=== PATIENT | male | born 2000 | race Caucasian/White ===

== ENCOUNTER 2020-02-25 14:35 | Emergency (ER) | payer OTHER, SELFPAY ==
--- NOTE | ~2020-02-25 | XR_ITS ---
EXAMINATION: XR finger 5th LT min 2V DATE: 02/25/2020 14:58 INDICATION: Swelling at the fifth digit after punching wall 8 days prior TECHNIQUE: Dorsal palmar, lateral and 2 oblique views of the left fifth digit were obtained COMPARISON: None FINDINGS: 30 degree palmar angulation of an otherwise nondisplaced extra articular fracture at the distal metad iaphyseal region of the fifth metacarpal. No other fractures identified. Joint spaces are normal. IMPRESSION: 1. 30 degrees palmar angulation of a fracture at the neck of the left fifth metacarpal (boxer's fract ure). Reviewed, dictated and finalized at location A. IMPRESSION: 1. 30 degrees palmar angulation of a fracture at the neck of the left fifth met acarpal (boxer's fracture).
--- NOTE | 2020-02-25 14:39 | ED.UPPEXIN ---
HPI - Extremity Injury (Upper) General Chief Complaint: Extremity Injury, Upper Stated Complaint: left pinky hand Time Seen by Provider: 02/25/20 14:49 Source: patient and RN notes reviewed Mode of arrival: ambulatory Limitations: no limitations History of Present Illness HPI narrative: 19-year-old male presents with concern for hand injury. Reports 9 days ago he punched a wall with his left hand causing pain, swelling, abrasions. 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 Reports abrasions are healing. complaint: injury to: left and hand Related Data Home Medications Medication Instructions Recorded Confirmed No Home Medications 08/23/19 08/23/19 Allergies Allergy/AdvReac Type Severity Reaction Status Date / Time No Known Allergies Allergy Unverified 08/23/19 15:08 Review of Systems Review of Systems: Narrative: CONSTITUTIONAL: Denies malaise, chills, sweats, or fever. CARDIOVASCULAR: Denies chest pain, palpitations RESPIRATORY: Denies cough or dyspnea. SKIN: Reports healing scabs MUSCULOSKELETAL: Reports pain, swelling to the left hand beneath the fifth digit NEUROLOGIC: Denies numbness, weakness All systems reviewed & are unremarkable except as noted in HPI and below PMFSH Family History Family History (Updated 08/23/19 @ 15:19 by Diana Malik [facility]) Grandparent Cancer Social History Social History Tobacco type: e-cigarettes/vaping Alcohol intake: never Substance use: never Comments At time of signature, agree with nursing past medical, surgical, social and family history. There is no relevant family history pertinent to the presenting complaint Exam Narrative: Exam Narrative: GENERAL: Well-appearing, well-nourished, and in no acute distress. HEAD: Normocephalic EYES: PERRLA, conjunctivae clear NECK: Supple. CHEST: Speaks in full sentences. No respiratory distress. HEART: Regular rate and rhythm. Normal and equal peripheral pulses. EXTREMITIES: Left hand and digits of hand have normal strength and sensation. 5/5 strength with digit flexion, extension. Range of motion normal. No clubbing, cyanosis noted. Dorsal tenderness beneath the fifth digit. Normal digital cascade with flexion of fingers, median, ulnar and radial nerve intact. Normal sensation of each side of finger. Can perform 'okay' sign, 'cross over finger test of index and middle fingers' and 'thumbs up' sign. No scissoring. Normal thumb opposition. Good capillary refill and radial pulse. Distal capillary refill less than 3 seconds. SKIN: Warn, dry, intact, pink. Scabs noted to the dorsal aspect of the hand of the knuckles, and abrasion noted to the palmar aspect of the hand with pink tissue. NEURO: Alert and oriented x3. PSYCH: Normal mood and affect Course Course Emergency Course: Patient is aware of diagnosis, understands and agrees to treatment plan. Anticipatory guidance given. Patient agrees to follow-up as directed and is aware of reasons to seek care at the emergency department. Portions of this record may have been created with voice recognition software Vital Signs Vital signs: Reviewed. Pt has been instructed to follow up with his primary care provider within the next week regarding his elevated blood pressure today. MDM - Extremity Injury (Upper) MDM Narrative Medical decision making narrative: Patients injury and pain is consistent with musculoskeletal etiology. No signs of neurological or vascular compromise on exam. Compartments and tissues are soft without signs of compartment syndrome. Pain is felt appropriate for further evaluation on an outpatient basis. Differential Diagnosis Differential diagnosis: Likely finger sprain, dislocation of finger, fracture of hand and other (Soft tissue injury, sprain, digit fracture) Imaging Data My impression: Images reviewed, interpreted by radiol
[2020-02-25 14:43] VITALS: BP 143/75; PULSE 75; RESP 16; TEMP 36.7; O2SAT 100
== END 2020-02-25 15:45 | disposition home or self-care (01) ==
PROVIDERS: Emergency Provider Nurse Practitioner
DX: S62.337A Displaced fracture of neck of fifth metacarpal bone, left hand, initial encounter for closed fracture (principal); W22.8XXA Striking against or struck by other objects, initial encounter; F17.200 Nicotine dependence, unspecified, uncomplicated
CPT/HCPCS: 29125; 73140; 99214; A4565; G0463

== ENCOUNTER 2020-04-15 10:50 | Emergency (ER) | payer OTHER, SELFPAY ==
[2020-04-15 10:58] VITALS: BP 137/61; PULSE 86; RESP 18; TEMP 36.8; O2SAT 100
[2020-04-15 11:06] VITALS: BP 137/61; PULSE 86; RESP 18; TEMP 36.8; O2SAT 100
--- NOTE | 2020-04-15 11:36 | ED.EAR ---
HPI - Ear Problem General Chief complaint: Ear Stated complaint: Ear Pain Time Seen by Provider: 04/15/20 11:36 Source: patient and RN notes reviewed Mode of arrival: ambulatory Limitations: no limitations History of Present Illness HPI Narrative: 19-year-old male who presents to [facility] care with complaints of left ear pain, drainage for the past 1-1/2 to 2 weeks duration. Patient states that he feels pressure to his left ear, has noted bloody drainage from his ear with some scabs noted in ear canal. Patient states that he has some nasal drainage, denies any known fevers, chills or sweats, denies any sore throat or cough. Patient states that he did have one emesis last night but denies any nausea or vomiting today. MD Complaint: ear pain and ear discharge Location: left ear Duration: constant Severity: moderate Relieving factors: ear drops Exacerbating factors: nothing Discharge from ear: Reports yes - bloody Associated symptoms ear: decreased hearing, external ear tenderness and rhinorrhea Treatment prior to arrival: eardrops Related Data Allergies Allergy/AdvReac Type Severity Reaction Status Date / Time No Known Allergies Allergy Verified 04/15/20 11:05 Review of Systems Review of Systems: Narrative: CONSTITUTIONAL: Denies fever, chills, or sweats. EYES: Denies visual changes, redness, or discharge. ENT: Positive rhinorrhea, congestion,no sore throat, positive left otalgia. CARDIOVASCULAR: Denies chest pain, palpitations, or edema. RESPIRATORY: Denies cough or dyspnea. GASTROINTESTINAL: Denies abdominal pain, nausea, 1 episode of vomiting last night, diarrhea. GENITOURINARY: Denies dysuria or hematuria. SKIN: Denies rash or itching. MUSCULOSKELETAL: Denies back pain, joint pain, or myalgia. NEUROLOGIC: Denies headache, numbness, or weakness. PSYCHIATRIC: Denies anxiety or depression. All systems reviewed & are unremarkable except as noted in HPI and below PMFSH Past Medical History Medical History (Updated 04/15/20 @ 12:30 by Jerri Felton NP) Allergies Boxer's fracture Family History Family History (Updated 08/23/19 @ 15:19 by Diana Malik CMA) Grandparent Cancer Social History Social History (Updated 04/15/20 @ 12:33 by Jerri L. Purnima, GAS ATTENDANT) Tobacco type: e-cigarettes/vaping Alcohol intake: never Substance use: never Living arrangements: with family Gender identity (if verbalized by the patient): Male Comments At time of signature, agree with nursing past medical, surgical, social and family history. There is no relevant family history pertinent to the presenting complaint Exam Narrative: Exam Narrative: GENERAL: Well-appearing, well-nourished, and in no acute distress. HEAD: Normocephalic, atraumatic. EYES: PERRLA and EOMI. ENT: Nares clear, clear rhinorrhea no epistaxis. Mucous membranes moist. Right tympanic membrane intact with good light reflex, left tympanic membrane ruptured with surrounding redness, bloody drainage in ear canal with some scabbing in ear canal noted, decreased hearing noted to left ear, throat red swollen enlarged tonsils with no exudates. NECK: Supple. No lymphadenopathy CHEST: Clear to auscultation. No respiratory distress. SaO2 100% on room air HEART: Regular rate and rhythm. No murmur heard. Normal peripheral pulses. ABDOMEN: Soft, nontender, nondistended, normal active bowel sounds. EXTREMITIES: Normal range of motion. No edema. SKIN: Warm, dry, no rash. NEURO: No focal deficits. Alert and oriented x3. Course Vital Signs Vital signs: Vital Signs Temperature 36.8 C 04/15/20 10:58 Pulse Rate 86 04/15/20 10:58 Respiratory Rate 18 04/15/20 10:58 Blood Pressure 137/61 04/15/20 10:58 Pulse Oximetry 100 04/15/20 10:58 Temperature 36.8 C 04/15/20 11:06 Pulse Rate 86 04/15/20 11:06 Respiratory Rate 18 04/15/20 11:06 Blood Pressure 137/61 04/15/20 11:06 Pulse Oximetry 100 04/15/20 11:06 Medical Decision Making
== END 2020-04-15 12:00 | disposition home or self-care (01) ==
PROVIDERS: Emergency Provider Registered Nurse
DX: H66.012 Acute suppurative otitis media with spontaneous rupture of ear drum, left ear (principal); F17.200 Nicotine dependence, unspecified, uncomplicated
CPT/HCPCS: 99213; G0463

== ENCOUNTER 2022-11-30 15:02 | Outpatient (CLI) | payer OTHER, SELFPAY ==
[2022-11-30 19:20] LABS: Hematocrit 43.1 % (42.0-52.0); Hemoglobin 14.5 g/dL (14.0-18.0); Mean Corpuscular HGB Conc 33.6 g/dl (32-36); Mean Corpuscular Hemoglobin 29.9 pg (26-34); Mean Corpuscular Volume 88.9 fl (80-100); Mean Platelet Volume 10.8 fl (7.4-10.4); Platelet Count Result 233 k/mm3 (150-375); Red Blood Count 4.85 M/mm3 (4.6-6.20); Red Cell Distribution Width 12.8 % (11.5-14.5); White Blood Count 6.5 K/mm3 (4.5-10.0)
[2022-11-30 19:38] LABS: Alanine Aminotransferase 19 U/L (6-50); Albumin Level 4.4 g/dL (3.5-5.1); Alkaline Phosphatase 71 U/L (38-126); Anion Gap 8 mmol/L (8-16); Aspartate Amino Transferase 52 U/L (17-59); Bilirubin,Total 0.5 mg/dL (0.2-1.3); Blood Urea Nitrogen 12 mg/dL (9-20); Calcium 9.1 mg/dL (8.4-10.2); Carbon Dioxide 30 mmol/L (22-30); Chloride 100 mmol/L (98-107); Cholesterol 162 mg/dL (0-200); Estimated Glomerular Filt Rate > 60; Glucose 83 mg/dL (65-110); HDL Direct 41 mg/dL; Potassium 4.2 mmol/L (3.4-5.0); Sodium 138 mmol/L (137-145); Triglycerides 81 mg/dL (<150)
[2022-11-30 19:49] LABS: LDL Cholesterol Direct 99 mg/dL
[2022-11-30 20:10] LABS: Thyroid Stimulating Hormone 0.902 uIU/mL (0.465-4.680)
== END 2022-11-30 15:03 | disposition home or self-care (01) ==
LOC: ANHBWCLAB 15:03
PROVIDERS: PCP Family Medicine; Visit Provider Nurse Practitioner Adult Health
DX: Z13.9 Encounter for screening, unspecified (principal); R68.89 Other general symptoms and signs
CPT/HCPCS: 36415; 80053; 80061; 84443; 85027

== ENCOUNTER 2023-06-21 10:51 | Outpatient (CLI) | payer OTHER, SELFPAY ==
--- NOTE | ~2023-06-21 | XR_ITS ---
XR chest 2V DATE: 06/21/2023 11:00 INDICATION: Chest pain TECHNIQUE: PA and lateral views COMPARISON: None FINDINGS: Normal heart size. No hilar or mediastinal enlargement. No pulmonary infiltrate or consolid ation, pleural effusion or pulmonary vascular congestion or pneumothorax. Included skeletal structure s are normal. IMPRESSION: Negative Reviewed, dictated and finalized at location L. FILER IMPRESSION: Negative
== END 2023-06-21 10:52 | disposition home or self-care (01) ==
LOC: ANHBWCIMG 10:52
PROVIDERS: PCP Nurse Practitioner Adult Health; Visit Provider Nurse Practitioner Adult Health
DX: R07.89 Other chest pain (principal)
CPT/HCPCS: 71046

== ENCOUNTER 2023-12-28 17:57 | Emergency (ER) | payer OTHER, SELFPAY ==
[2023-12-28 18:06] VITALS: BP 128/66; PULSE 70; RESP 16; TEMP 37.1; O2SAT 100
--- NOTE | 2023-12-28 18:51 | ED.BACK ---
HPI - Back Pain/Injury General Chief Complaint: Back Pain/Injury Stated Complaint: lower back pain Time Seen by Provider: 12/28/23 18:40 Source: patient and RN notes reviewed Mode of arrival: ambulatory Limitations: no limitations History of Present Illness HPI Narrative: Patient presents today complaining of severe low back pain that started 2 days ago after he, ?tweaked? his back while working out at the gym. States this is an exacerbation of an old injury that occurred approximately 2 years ago. Occasionally he re-injure is the area. If he does have some radiation down his legs to the knee that is worse with weight-bearing. Denies numbness or tingling, loss of bowel or bladder control. Currently rates his pain 8/10 and has been taking ibuprofen without relief. Related Data Allergies Allergy/AdvReac Type Severity Reaction Status Date / Time No Known Allergies Allergy Verified 12/28/23 18:12 Review of Systems Review of Systems: CONSTITUTIONAL: Denies body aches, fever, chills, or sweats. EYES: Denies visual changes, redness, or discharge. ENT: Denies rhinorrhea, congestion, sore throat, or otalgia. CARDIOVASCULAR: Denies chest pain, palpitations, or edema. RESPIRATORY: Denies cough or dyspnea. GASTROINTESTINAL: Denies abdominal pain, nausea, vomiting, or diarrhea. GENITOURINARY: Denies dysuria or hematuria. SKIN: Denies rash, itching, or wounds. MUSCULOSKELETAL: Denies joint pain, or myalgia.+ back pain NEUROLOGIC: Denies headache, numbness, tingling, or weakness. PSYCH: Denies depression or anxiety. [facility] Past Medical History Medical History Allergies Boxer's fracture Family History Family History Grandparent Cancer Social History Social History (Updated 12/28/23 @ 19:16 by Rosa Isela Wong, HOME [employer]MENT [employer]ST[employer]ER, ) Smoking status: Never smoker Tobacco type: e-cigarettes/vaping Alcohol intake: current Alcohol use details: Beer Random amount Substance use: current Substance use type: marijuana Lack of Transportation: No Lack of Food: Never True Current Housing: I Have Housing Concerned About Future Housing: No Difficulty Paying Gas/Electric Bills: No Difficulty Paying for Meds: No Currently Unemployed: No Education: High School Diploma/GED Living arrangements: with family Occupation/Education: occupation Additional occupation/education comments: [employer] Gender identity (if verbalized by the patient): Male Agree to blood products: Yes Comments At time of signature, I have reviewed and agree with nursing past medical, surgical, social and family history unless otherwise noted. Please see nursing chart for further information. There is no relevant family history pertinent to the presenting complaint Exam Narrative: GENERAL: Well-appearing, well-nourished, and in mild pain distress. HEAD: Normocephalic, atraumatic. EYES: EOMI. No redness or drainage. Conjunctivae normal. ENT: Mucous membranes pink and moist. NECK: Normal AROM. CHEST: No respiratory distress. MUSCULOSKELETAL: Back is nontender to palpation. Localizes his pain to the lower lumbar area, bilateral paraspinal muscles. Pain increases with movement in all directions. Distal sensation intact. Saddle sensation intact. Capillary refill normal. Dorsiflexion and plantar flexion equal and strong against resistance. Patellar reflexes 2+ bilaterally. EXTREMITIES: Normal range of motion. No edema. SKIN: Warm, dry, no rash. Capillary refill normal. Normal skin turgor. NEURO: No focal deficits. Alert and oriented x3. Gait steady. PSYCH: Normal affect. No signs of depression or anxiety. Course Course Level of Care: Express Care Visit Vital Signs Vital signs: Vital Signs Temperature 98.7 F 12/28/23 18:06 Pulse Rate 70 12/28/23 18:06 Respiratory Rate 16 12/28/23 18
== END 2023-12-28 19:00 | disposition home or self-care (01) ==
PROVIDERS: Emergency Provider Nurse Practitioner
DX: S39.012A Strain of muscle, fascia and tendon of lower back, initial encounter (principal); X58.XXXA Exposure to other specified factors, initial encounter
CPT/HCPCS: 99213; G0463